=== PATIENT | female | born 1940 | race Caucasian/White ===

== ENCOUNTER 2016-11-23 08:42 | Observation (INO) ==
[2016-11-23] MEDS ORDERED: 0.9 % Sodium Chloride 1,000 ML IVC ONE (09:08)
--- NOTE | 2016-11-23 09:08 | Emergency Department Note ---
Disposition Clinical Impression: Chest pain of uncertain etiology Abdominal pain Qualifiers: Abdominal location: right upper quadrant Qualified Code(s): R10.11 - Right upper quadrant pain Disposition: Admitted As Inpatient Condition: Fair Referrals: NO,PCP [Non-Partnered Physician] - Forms: Work/School Release, ED Satisfaction Letter Time of Disposition: 10:53 Abdominal Pain HPI - General Chief Complaint: ED Abdominal Pain Stated Complaint: abd pain and knot under right breast Time Seen by Provider: 11/23/16 08:55 Source: patient Mode of arrival: ambulatory Limitations: no limitations Nursing Notes Reviewed: Yes Vital Signs Reviewed: Yes - History of Present Illness HPI Narrative: patient reports she is having abdominal pain, and this morning noticed a hard "knot" in the RUQ, under the breast. She did see her PCP earlier this week for abdominal pain, was given GERD medication, but this has not helped. She reports no nausea at this time. No vomiting, no fever. Patient has no history of HTN, or DM, or cardiac disease. Patient denies chest pain at this time. She does have tenderness under the right breast/rib region. She describes the pain as sharp at times. Dr. Garzon also examined patient. Pt Subjective Complaint: abdominal pain Onset (ago): unknown Consistency: intermittent, Worsening Location: RUQ Pain Severity: moderate Pain Scale: 5 Quality: stabbing, sharp Radiation: none Migration to: no migration Improves with: nothing Worsens with: nothing Associated symptoms: Reports: nausea. Denies: vomiting, diarrhea, fever, chills , constipation, dysuria, hematemesis, hematochezia, melena, hematuria, anorexia Treatments prior to arrival: none - Related Data Home Medications Medication Instructions Recorded Confirmed HYDROcodone/Acet 5/325 mg [[place] 1 tab PO Q6H PRN 09/07/16 11/23/16 5-325 mg] Lisinopril/Hydrochlorothiazide 1 tab PO DAILY 09/07/16 11/23/16 [Zestoretic 20-12.5 mg Tablet] Simvastatin [Zocor] 20 mg PO DAILY 09/07/16 11/23/16 Hydroxychloroquine [Plaquenuil] 200 mg PO DAILY 11/23/16 11/23/16 Omeprazole [PriLOSEC] 20 mg PO DAILY 11/23/16 11/23/16 Allergies Allergy/AdvReac Type Severity Reaction Status Date / Time No Known Allergies Allergy Verified 11/23/16 08:48 All systems ED: reviewed and negative except as stated. Constitutional: Denies: fever, chills, weakness, weight change Cardiovascular: Denies: chest pain, palpitations, dyspnea on exertion, edema, syncope Respiratory: Denies: cough, dyspnea, wheezes, hemoptysis, stridor Gastrointestinal: Reports: abdominal pain, nausea. Denies: vomiting, diarrhea, constipation, hematemesis, melena, hematochezia Genitourinary: Denies: dysuria, frequency, hematuria, discharge Musculoskeletal: Denies: back pain, neck pain, arthralgia, myalgia Integumentary: Denies: rash, abrasion, lesions Neurological: Denies: headache, weakness, numbness, paresthesias, confusion, abnormal gait, vertigo Abdominal Pain PMH - Past Medical History Medical history: Reports: hyperlipidemia, hypertension Female Surgical History: Reports: appendectomy, cholecystectomy Psychiatric history: Reports: no psych history - Social History Smoking status: Never smoker Alcohol use: Reports: none Drug use: Reports: none Physical Exam - General Limitations: no limitations General appearance: alert, in no apparent distress - Head Head exam: atraumatic, normocephalic, normal inspection - Eye Eye exam: Present: normal appearance, PERRL, EOMI - ENT ENT exam: normal exam, normal oropharynx, mucous membranes moist - Neck Neck exam: Present: normal inspection, full ROM, trachea midline - Chest Chest inspection: Present: normal inspection, symmetric chest wall rise - Respiratory Respiratory exam: Present: normal lung sounds bilaterally - Cardiovascular Cardiovascular exam: Present: regular rate, normal rhythm, normal heart sounds - Abdominal Exam Abdominal exam: Present: soft, tenderness (RUQ, palpable nodule that is tender with palpation noted in the RUQ. ), normal bowel sounds. Absent: distention, guarding, rebound Abdominal tenderness: Present: RUQ, moderate - Extremities Exam Extremities exam: Present: normal inspection, full ROM. Absent: tenderness, pedal edema - Back Exam Back exam: Present: normal inspection, full ROM. Absent: tenderness - Neurological Exam Neurological exam: Present: alert, oriented X3 - Psychiatric Psychiatric exam: Present: normal affect, normal mood Course - Reevaluation(s) Reevaluation #1: Discussed with patient labs, radiology and heart score. Discussed admission to the hospital. Time: 10:30 - Consultations Consultation #1: Dr. Rosario accepted patient as admission Time: 10:51 Vital Signs Temperature 97.5 F L 11/23/16 08:43 Pulse Rate 101 11/23/16 08:43 Respiratory Rate 16 11/23/16 08:43 Blood Pressure 114/78 11/23/16 08:43 O2 Sat by Pulse Oximetry 97 11/23/16 08:43 Temperature 97.5 F L 11/23/16 08:43 Pulse Rate 83 11/23/16 09:44 Respiratory Rate 18 11/23/16 09:44 Blood Pressure 113/47 11/23/16 09:44 O2 Sat by Pulse Oximetry 99 11/23/16 09:44 Oxygen Delivery Oxygen Delivery Room Air Abdominal Pain - Lab Data Lab results reviewed: Yes I reviewed the patient's lab results. Result diagrams: 11/23/16 09:24 11/23/16 09:24 Lab Results 11/23/16 11/23/16 11/23/16 Range/Units 09:24 09:24 09:25 WBC 4.9 (4.3-11.1) K/mcL RBC 3.85 (3.82-4.97) M/mcL Hgb 10.9 L (11.5-15.4) g/dL Hct 33.8 L (35.3-44.9) % MCV 87.8 (83.0-100.0) fL MCH 28.3 (28.0-33.3) pg MCHC 32.2 (31.6-35.5) g/dL RDW 12.5 (11.5-14.5) % Plt Count 265 (140-400) K/mcL MPV 9.0 L (9.4-12.4) fL Immature Gran % 0.4 (0-4) % Seg Neutrophils % 73.1 % Lymphocytes % 16.2 % Monocytes % 7.2 % Eosinophils % 2.3 % Basophils % 0.8 % Neutrophils # 3.6 (1.6-8.9) K/mcL Lymphocytes # 0.8 (0.6-4.6) K/mcL Monocytes # 0.4 (0.0-1.3) K/mcL Eosinophils # 0.1 (0.0-0.6) K/mcL Basophils # 0.0 (0.0-0.2) K/mcL Sodium 142 (136-145) mEq/L Potassium 3.4 L (3.5-4.5) mEq/L Chloride 109 (98-109) mEq/L Carbon Dioxide 24 (19-29) mEq/L BUN 32 H (7-20) mg/dL Creatinine 1.32 H (0.57-1.11) mg/dL Est GFR ( Amer) 48 L (> 60) Est GFR (Non-Af Amer) 39 L (> 60) BUN/Creatinine Ratio 24 (6-26) Glucose 111 H (70-99) mg/dL Calculated Osmolality 302 H (280-300) Calcium 9.2 (8.6-10.8) mg/dL Total Bilirubin 0.9 (0.2-1.2) mg/dL Direct Bilirubin 0.4 (0.0-0.5) mg/dL Indirect Bilirubin 0.5 (0.0-1.2) mg/dL AST 6 (5-34) Units/L ALT 8 (0-55) Units/L Alkaline Phosphatase 85 (38-126) Units/L Troponin I 0.00 (0-0.03) ng/mL Serum Total Protein 6.7 (6.0-8.3) g/dL Albumin 3.5 (3.5-5.0) g/dL Globulin 3.2 (2.4-3.5) g/dL Albumin/Globulin Ratio 1.1 (1.1-2.2) Lipase 28 (8-78) Units/L Urine Color (Yellow) Urine Clarity (Clear) Urine pH (5.0-8.0) pH Units Ur Specific Anderson (1.010-1.025) Urine Protein (Neg-Trace) mg/dL Urine Glucose (UA) (Normal) mg/dL Urine Ketones (Negative) mg/dL Urine Blood (Negative) Urine Nitrite (Negative) Urine Bilirubin (Negative) Urine Urobilinogen (Normal) mg/dL Ur Leukocyte Esterase (Negative) Urine Microscopic RBC (0-3) per hpf Urine Microscopic WBC (0-3) per hpf Ur Squamous Epith Cells (None-Few) per lpf Urine Bacteria (None-Few) per hpf Hyaline Casts (None-Few) per lpf Ur Culture Indicated? (NO) 11/23/16 Range/Units 09:30 WBC (4.3-11.1) K/mcL RBC (3.82-4.97) M/mcL Hgb (11.5-15.4) g/dL Hct (35.3-44.9) % MCV (83.0-100.0) fL MCH (28.0-33.3) pg MCHC (31.6-35.5) g/dL RDW (11.5-14.5) % Plt Count (140-400) K/mcL MPV (9.4-12.4) fL Immature Gran % (0-4) % Seg Neutrophils % % Lymphocytes % % Monocytes % % Eosinophils % % Basophils % % Neutrophils # (1.6-8.9) K/mcL Lymphocytes # (0.6-4.6) K/mcL Monocytes # (0.0-1.3) K/mcL Eosinophils # (0.0-0.6) K/mcL Basophils # (0.0-0.2) K/mcL Sodium (136-145) mEq/L Potassium (3.5-4.5) mEq/L Chloride (98-109) mEq/L Carbon Dioxide (19-29) mEq/L BUN (7-20) mg/dL Creatinine (0.57-1.11) mg/dL Est GFR ( Amer) (> 60) Est GFR (Non-Af Amer) (> 60) BUN/Creatinine Ratio (6-26) Glucose (70-99) mg/dL Calculated Osmolality (280-300) Calcium (8.6-10.8) mg/dL Total Bilirubin (0.2-1.2) mg/dL Direct Bilirubin (0.0-0.5) mg/dL Indirect Bilirubin (0.0-1.2) mg/dL AST (5-34) Units/L ALT (0-55) Units/L Alkaline Phosphatase (38-126) Units/L Troponin I (0-0.03) ng/mL Serum Total Protein (6.0-8.3) g/dL Albumin (3.5-5.0) g/dL Globulin (2.4-3.5) g/dL Albumin/Globulin Ratio (1.1-2.2) Lipase (8-78) Units/L Urine Color Yellow (Yellow) Urine Clarity Clear (Clear) Urine pH 6.0 (5.0-8.0) pH Units Ur Specific Anderson 1.015 (1.010-1.025) Urine Protein Negative (Neg-Trace) mg/dL Urine Glucose (UA) Normal (Normal) mg/dL Urine Ketones Negative (Negative) mg/dL Urine Blood Negative (Negative) Urine Nitrite Negative (Negative) Urine Bilirubin Negative (Negative) Urine Urobilinogen Normal (Normal) mg/dL Ur Leukocyte Esterase Large H (Negative) Urine Microscopic RBC 0-3 (0-3) per hpf Urine Microscopic WBC 15-30 H (0-3) per hpf Ur Squamous Epith Cells Many H (None-Few) per lpf Urine Bacteria None Seen (None-Few) per hpf Hyaline Casts None Seen (None-Few) per lpf Ur Culture Indicated? YES A (NO) - Radiology Data Radiology results reviewed: Yes I reviewed the patient's radiology results. - EKG Data EKG shows normal: sinus rhythm When compared to previous EKG there are: previous EKG unavailable Attestation Statement - Attestation Attestation: I personally interviewed and examined this patient and my medical decision- making was reviewed with the ED PATTI, Ms. Diaz. I agree with the documented findings, disposition and treatment plan as described except to the extent set forth below. This is a 76-year-old white female with a history of hypertension and hyperlipidemia who presents the emergency parents today after being seen by her family doctor a few days ago for what she describes as a "lump on my chest" that is tender to palpation and causing her pain. When I asked her to show me where she is hurting patient points to her right anterior costal margin, and upon palpation of her lower 2 ribs patient has exquisite tenderness to palpation. Patient denies any history of falls or trauma or blunt injury to the lower chest or upper abdomen. Patient denies any fevers or chills, no URI symptoms cold or cough, no nausea vomiting, no diaphoresis, no abdominal pain or flank pain and no urinary symptoms. Patient's points to her substernal area as well and states that at times she does have pain in that area although none currently. Patient without tenderness to palpation throughout manger of the chest wall. He not feel a lump on palpation and actually palpating her anterior lower ribs near the right sternal border. When I push on this area as she said that exactly where she has been having the pain and not so she has been feeling as the prominence of her ribs and not area. Is in no acute distress resting comfortably with stable vital signs at this time. She has exquisite reproducible tenderness to palpation of those lower to anterior ribs on the right which are tender from the sternal border on the right and extending around to her lateral chest wall. There is no palpable crepitus or subcutaneous air. There is no overlying ecchymosis or abrasions noted. Patient's remaining exam is all within normal limits. She did add while I was examining her that at times over the last 2 days she has been having this substernal pain that feels a pressure sensation lasting 15- 20 minutes at rest and then resolves. Patient denies any symptoms in the substernal area currently. She denies any associated symptoms with this pain. On my examination I canceled the CT abdomen and pelvis as the patient has no abnormal abdominal symptoms or tenderness to palpation. I feel the pain that she is experiencing is coming from her bony rib cage. I added a right rib and chest x-ray as well as EKG and a troponin. Her EKG shows a normal sinus rhythm with some subtle ST depression less than 1 mm that anterolateral leads. We will obtain old films available. Patient's heart score equals 5, currently has resolution of her substernal pain that she has been experiencing at rest at home. Chest x-ray is negative for any rib injury and remainder of labs including troponin are negative. Patient has no old EKG for comparison today and her EKG here does show some subtle ST depression. We will bring the patient in for evaluation of chest pain, she has received aspirin and is pain-free currently. Chest Pain - Lab Data Result diagrams: 11/23/16 09:24 11/23/16 09:24 Lab Results 11/23/16 11/23/16 11/23/16 Range/Units 09:24 09:24 09:25 WBC 4.9 (4.3-11.1) K/mcL RBC 3.85 (3.82-4.97) M/mcL Hgb 10.9 L (11.5-15.4) g/dL Hct 33.8 L (35.3-44.9) % MCV 87.8 (83.0-100.0) fL MCH 28.3 (28.0-33.3) pg MCHC 32.2 (31.6-35.5) g/dL RDW 12.5 (11.5-14.5) % Plt Count 265 (140-400) K/mcL MPV 9.0 L (9.4-12.4) fL Immature Gran % 0.4 (0-4) % Seg Neutrophils % 73.1 % Lymphocytes % 16.2 % Monocytes % 7.2 % Eosinophils % 2.3 % Basophils % 0.8 % Neutrophils # 3.6 (1.6-8.9) K/mcL Lymphocytes # 0.8 (0.6-4.6) K/mcL Monocytes # 0.4 (0.0-1.3) K/mcL Eosinophils # 0.1 (0.0-0.6) K/mcL Basophils # 0.0 (0.0-0.2) K/mcL Sodium 142 (136-145) mEq/L Potassium 3.4 L (3.5-4.5) mEq/L Chloride 109 (98-109) mEq/L Carbon Dioxide 24 (19-29) mEq/L BUN 32 H (7-20) mg/dL Creatinine 1.32 H (0.57-1.11) mg/dL Est GFR ( Amer) 48 L (> 60) Est GFR (Non-Af Amer) 39 L (> 60) BUN/Creatinine Ratio 24 (6-26) Glucose 111 H (70-99) mg/dL Calculated Osmolality 302 H (280-300) Calcium 9.2 (8.6-10.8) mg/dL Total Bilirubin 0.9 (0.2-1.2) mg/dL Direct Bilirubin 0.4 (0.0-0.5) mg/dL Indirect Bilirubin 0.5 (0.0-1.2) mg/dL AST 6 (5-34) Units/L ALT 8 (0-55) Units/L Alkaline Phosphatase 85 (38-126) Units/L Troponin I 0.00 (0-0.03) ng/mL Serum Total Protein 6.7 (6.0-8.3) g/dL Albumin 3.5 (3.5-5.0) g/dL Globulin 3.2 (2.4-3.5) g/dL Albumin/Globulin Ratio 1.1 (1.1-2.2) Lipase 28 (8-78) Units/L Urine Color (Yellow) Urine Clarity (Clear) Urine pH (5.0-8.0) pH Units Ur Specific Anderson (1.010-1.025) Urine Protein (Neg-Trace) mg/dL Urine Glucose (UA) (Normal) mg/dL Urine Ketones (Negative) mg/dL Urine Blood (Negative) Urine Nitrite (Negative) Urine Bilirubin (Negative) Urine Urobilinogen (Normal) mg/dL Ur Leukocyte Esterase (Negative) Urine Microscopic RBC (0-3) per hpf Urine Microscopic WBC (0-3) per hpf Ur Squamous Epith Cells (None-Few) per lpf Urine Bacteria (None-Few) per hpf Hyaline Casts (None-Few) per lpf Ur Culture Indicated? (NO) 11/23/16 Range/Units 09:30 WBC (4.3-11.1) K/mcL RBC (3.82-4.97) M/mcL Hgb (11.5-15.4) g/dL Hct (35.3-44.9) % MCV (83.0-100.0) fL MCH (28.0-33.3) pg MCHC (31.6-35.5) g/dL RDW (11.5-14.5) % Plt Count (140-400) K/mcL MPV (9.4-12.4) fL Immature Gran % (0-4) % Seg Neutrophils % % Lymphocytes % % Monocytes % % Eosinophils % % Basophils % % Neutrophils # (1.6-8.9) K/mcL Lymphocytes # (0.6-4.6) K/mcL Monocytes # (0.0-1.3) K/mcL Eosinophils # (0.0-0.6) K/mcL Basophils # (0.0-0.2) K/mcL Sodium (136-145) mEq/L Potassium (3.5-4.5) mEq/L Chloride (98-109) mEq/L Carbon Dioxide (19-29) mEq/L BUN (7-20) mg/dL Creatinine (0.57-1.11) mg/dL Est GFR ( Amer) (> 60) Est GFR (Non-Af Amer) (> 60) BUN/Creatinine Ratio (6-26) Glucose (70-99) mg/dL Calculated Osmolality (280-300) Calcium (8.6-10.8) mg/dL Total Bilirubin (0.2-1.2) mg/dL Direct Bilirubin (0.0-0.5) mg/dL Indirect Bilirubin (0.0-1.2) mg/dL AST (5-34) Units/L ALT (0-55) Units/L Alkaline Phosphatase (38-126) Units/L Troponin I (0-0.03) ng/mL Serum Total Protein (6.0-8.3) g/dL Albumin (3.5-5.0) g/dL Globulin (2.4-3.5) g/dL Albumin/Globulin Ratio (1.1-2.2) Lipase (8-78) Units/L Urine Color Yellow (Yellow) Urine Clarity Clear (Clear) Urine pH 6.0 (5.0-8.0) pH Units Ur Specific Anderson 1.015 (1.010-1.025) Urine Protein Negative (Neg-Trace) mg/dL Urine Glucose (UA) Normal (Normal) mg/dL Urine Ketones Negative (Negative) mg/dL Urine Blood Negative (Negative) Urine Nitrite Negative (Negative) Urine Bilirubin Negative (Negative) Urine Urobilinogen Normal (Normal) mg/dL Ur Leukocyte Esterase Large H (Negative) Urine Microscopic RBC 0-3 (0-3) per hpf Urine Microscopic WBC 15-30 H (0-3) per hpf Ur Squamous Epith Cells Many H (None-Few) per lpf Urine Bacteria None Seen (None-Few) per hpf Hyaline Casts None Seen (None-Few) per lpf Ur Culture Indicated? YES A (NO) Heart Score - Score History: Moderately Suspicious EKG: Non Specific repolarisation Disturbance Age: Greater than 65 Risk Factors: 1-2 risk factors Troponin: Less than normal limit HEART Score Total: 5
[2016-11-23 09:35] LABS: Bilirubin,Urine Negative (Negative); Blood,Urine Negative (Negative); Clarity,Urine Clear (Clear); Color,Urine Yellow (Yellow); Glucose,Urine (UA) Normal (Normal); Ketones,Urine Negative (Negative); Leukocyte Esterase,Urine Large (Negative); Nitrite,Urine Negative (Negative); Protein,Urine Negative (Neg-Trace); Specific Gravity,Urine 1.015 (1.010-1.025); Urobilinogen,Urine Normal (Normal)
[2016-11-23 09:37] LABS: Bacteria,Urine None Seen per hpf (None-Few); Hyaline Casts,Urine None Seen per lpf (None-Few); RBC,Urine 0-3 per hpf (0-3); Squamous Epithelial Cell,Urine Many per lpf (None-Few); WBC,Urine 15-30 per hpf (0-3)
[2016-11-23 09:39] LABS: Hematocrit 33.8 % (35.3-44.9); Hemoglobin 10.9 g/dL (11.5-15.4); Immature Granulocytes % 0.4 % (0-4); Lymphocytes % 16.2 %; Mean Corpuscular HGB Conc 32.2 g/dL (31.6-35.5); Mean Corpuscular Hemoglobin 28.3 pg (28.0-33.3); Mean Corpuscular Volume 87.8 fL (83.0-100.0); Monocytes % 7.2 %; Platelet Count 265 K/mcL (140-400); Red Blood Count 3.85 M/mcL (3.82-4.97); Red Cell Distribution Width 12.5 % (11.5-14.5); Segmented Neutrophils % 73.1 %
[2016-11-23 09:40] LABS: Basophils % 0.8 %; Eosinophils # 0.1 K/mcL (0.0-0.6); Eosinophils % 2.3 %; Lymphocytes # 0.8 K/mcL (0.6-4.6); Monocytes # 0.4 K/mcL (0.0-1.3); Neutrophils # 3.6 K/mcL (1.6-8.9)
[2016-11-23 09:55] LABS: Albumin 3.5 g/dL (3.5-5.0); Albumin/Globulin Ratio 1.1 (1.1-2.2); Bilirubin,Direct 0.4 mg/dL (0.0-0.5); Bilirubin,Indirect 0.5 mg/dL (0.0-1.2); Bilirubin,Total 0.9 mg/dL (0.2-1.2); Calcium 9.2 mg/dL (8.6-10.8); Globulin 3.2 g/dL (2.4-3.5); Potassium 3.4 mEq/L (3.5-4.5); Total Protein 6.7 g/dL (6.0-8.3)
[2016-11-23] MEDS ORDERED: Aspirin 81 MG TAB.CHEW PO STA (09:59)
[2016-11-23] MEDS ORDERED: Naloxone 0.4 MG/ML INJ IVP PRN (11:01)
--- NOTE | 2016-11-23 11:45 | Internal Med History&Physical ---
<Mylene Clinton - Last Filed: 11/23/16 12:52> Date of Encounter: 11/23/16 Time of Encounter: 11:41 Assessment and Plan (1) Chest pain of uncertain etiology Current visit: Yes Status: Acute presented with right breast pain that radiates to mid chest at times. Does not follow with Cardiology and no previous ischemic work-up. Initial troponin negative, EKG with less than [address] depression in anterior-lateral lead. CXR with degenerative changes, otherwise non-acute. Suspect costrochondritis. Doubt true ACS but she does have cardiac risk factors (obesity, HTN and HLD). Was given ASA in the ED. Cont to trend troponin, ASA, home statin. Repeat EKG in the morning. Consider Nucelar stress test if EKG changes, troponin uptrending or sx's worsen. Consult Cardiology if needed (2) UTI (urinary tract infection) Current visit: Yes Status: Acute UA with large leuk esterase and pyuria. Add cipro for total 3 day course. Qualifiers: Qualified Code(s): N39.0 - Urinary tract infection, site not specified (3) CKD (chronic kidney disease) Current visit: Yes Status: Acute per hx. Cr 1.3 which appears at baseline. Received IV fluid bolus in the ED. Monitor with use of LORI Qualifiers: Qualified Code(s): N18.9 - Chronic kidney disease, unspecified (4) Hypertension Current visit: Yes Status: Acute per hx. BP controlled. Cont home BP medication. Monitor BP and titrate PRN Qualifiers: Qualified Code(s): I10 - Essential (primary) hypertension (5) Hyperlipidemia Current visit: Yes Status: Acute per hx. Control unknown. Cont home statin. Fasting lipid panel in the morning Qualifiers: Qualified Code(s): E78.5 - Hyperlipidemia, unspecified (6) Degenerative disc disease, thoracic Current visit: Yes Status: Acute incidental finding on Right rib x-ray. Right x-ray with questionably decreased height to thoracic vertebrae. Asymptomatic, denies back pain. No recent falls. Can follow-up outpatient with PCP (7) DVT prophylaxis Current visit: Yes Status: Acute heparin Internal Medicine - H&P: HPI Chief complaint: RUQ/chest pain Admitted From: Home Plans for Post Hospital Care: Home History of present illness: Ms. Ann is a 76 year old female with PMH HTN and HLD who presented to [facility] on 11/23/2016 with complaints of right UQ and chest pain. She was placed in observation status for ACS rule out. Information obtained from chart review and patient report. Seen and examined at bedside. She tells me that she has had pain under right breast for the last week and noticed a bump in the area last night. Says pain is thumping, radiates to mid chest and upper ABD, rates 5/10. Pain is constant and nothing makes better or worse. She also reports excessive belching. No association with eating or drinking. On my exam she denies CP, no SOB, no ABD pain. Past Med Surg Social Fam HX - Past Medical History Medical history: hyperlipidemia, hypertension Psychiatric history: no psych history - Past Surgical History Surgical History: appendectomy, breast surgery, cholecystectomy - Social History Smoking Status: Never smoker Smokeless Tobacco Status: No Alcohol use: none Drug use: none - Additional Family History Additional family history: reviewed and non-contributory per patient Internal Medicine - H&P: Meds HYDROcodone/Acet 5/325 mg [[place] 5-325 mg] 1 tab PO Q6H PRN 09/07/16 [History] Lisinopril/Hydrochlorothiazide [Zestoretic 20-12.5 mg Tablet] 1 tab PO DAILY 05/14 [History] Simvastatin [Zocor] 20 mg PO DAILY 09/07/16 [History] Hydroxychloroquine [Plaquenuil] 200 mg PO DAILY 11/23/16 [History] Omeprazole [PriLOSEC] 20 mg PO DAILY 11/23/16 [History] Allergies No Known Allergies Allergy (Verified 11/23/16 08:48) All Systems PM: A 10-system review of systems was performed and is negative for pertinent findings except as documented above in the HPI. - Constitutional Constitutional: no chills, no fever(s), no night sweats - EENT Eyes: no change in vision, no discharge, no pain, no photophobia Ears: no ear discharge, no ear pain, no tinnitus Nose, mouth and throat: no dysphagia, no nasal discharge, no neck pain, no sore throat - Breasts Breasts: other Additional comments: c/o lump and pain under right breast fold - Cardiovascular Cardiovascular ROS IM: no chest pain, no diaphoresis, no dyspnea, no lightheadedness, no palpitations, no syncope - Respiratory Respiratory: no cough, no dyspnea, no wheezing, no excessive phlegm production - Gastrointestinal Gastrointestinal: no abdominal pain, no diarrhea, no hematemesis, no hematochezia, no melena, no nausea, no vomiting - Genitourinary Genitourinary: no change in urinary stream, no dysuria, no flank pain, no hematuria - Musculoskeletal Musculoskeletal ROS IM: no numbness, no tingling - Integumentary Integumentary IM: rash, no unusual bruising Additional comments: rash to lower right back - Neurological Neurological ROS: no confusion, no convulsions, no focal weakness, no numbness, no tingling, no tremor(s) - Hematologic/Lymphatic Hematologic/Lymphatic: no easy bruising - Constitutional Vitals: Temp Pulse Resp BP Pulse Ox 97.5 F L 70 18 129/91 99 11/23/16 08:43 11/23/16 11:00 11/23/16 11:15 11/23/16 11:15 11/23/16 11:00 General appearance: Present: A&O X 3, morbidly obese, no acute distress - Head Head exam: Present: atraumatic, normocephalic - Eye Eye exam: Present: PERRL, conjuntiva pink, sclera anicteric Pupils: Present: PERRL - Neck Neck exam general surgery: Present: supple, trachea midline. Absent: lymphadenopathy - Respiratory Respiratory exam: Present: CTAB. Absent: accessory muscle use, rales, rhonchi, wheezes - Cardiovascular Cardiovascular exam: Present: RRR, +S1, +S2. Absent: diastolic murmur, gallop, rubs, systolic murmur - GI/Abdominal GI/Abdominal exam: Present: normal bowel sounds, soft, no peritoneal signs. Absent: distended, tenderness - Extremities Exam Extremities exam: Present: warm, radial pulses palpable and symetrical. Absent : calf tenderness, cyanotic, pedal edema - Neurological Exam Neurological exam: Present: CN II-XII intact, oriented X3, no focal deficits. Absent: pronater drift, facial droop, speech deficit - Skin Skin exam: Present: dry, intact, rash (+ right lower back resolving rash ) - Other Additional findings: small raised area to right breast fold Internal Med - H&P Results - Labs CBC & Chem 7: 11/23/16 09:24 11/23/16 09:24 <Marlenechelsey - Last Filed: 11/23/16 13:53> Date of Encounter: 11/23/16 Time of Encounter: 12:00 Internal Medicine - H&P: HPI History of present illness: Ms. Ann is a 76 year old female Past Med Surg Social Fam HX - Family History Mother History Unknown: Yes Father Cause of : cancer Hx Family Cancer: Yes All Systems PM: A 10-system review of systems was performed and is negative for pertinent findings except as documented above in the HPI. - Constitutional Vitals: Temp Pulse Resp BP Pulse Ox 97.6 F 65 16 114/64 100 11/23/16 11:51 11/23/16 11:51 11/23/16 11:51 11/23/16 11:51 11/23/16 11:56 Internal Med - H&P Results - Labs CBC & Chem 7: 11/23/16 09:24 11/23/16 09:24 - Attending Attestation I examined this patient and my medical decision-making was reviewed with the nurse practitioner. I agree with the documented history of present illness, review of systems, past medical, surgical social and family histories and examination findings, disposition and treatment plan as described above except to any changes set forth below. 76-year-old female patient with history of essential hypertension, hyperlipidemia presented with right-sided chest pain. Began last Saturday. She was evaluated by her regular doctor and was told that it could be related to acid reflux and was given medication for that. She denies any nausea or vomiting. The pain continued to persist and so she came to the ER today. This morning she did feel a lump on the right side of her chest wall at the site of her pain. No shortness of breath. No palpitations. No prior history of coronary artery disease. No similar episodes of chest pain in the past. Denies any trauma or injury On examination, patient is awake alert and oriented. Cardiac and respiratory examination is within normal limits. On examination of the chest wall, the patient does have tenderness over her right-sided lower ribs with mild palpable swelling at the site of her pain. Labs show normal troponins. Patient has minimal less than 1 mm depression in the ST segment on her anterior leads. No prior EKG to compare. Chest pain: Likely musculoskeletal/costochondritis related chest pain. However the patient does have risk factors including age, sex, hypertension and hyperlipidemia. We will trend troponins. Monitor with telemetry. Repeat EKG in the morning. May consider stress test in the morning if any further abnormalities found. Otherwise will treat for costochondritis with analgesics. Mild acute urinary tract infection. We will treat with ciprofloxacin. Follow urine culture results. Chronic kidney disease stage III: Patient's creatinine is at baseline. This document has been at least partially created by [employer] recognition technology by Dr. Rosario. Errors in grammar, wording or other phrases may exist. If errors are found after the documentation is signed, they will be addressed individually in the addendum section of this document when appropriate.
[2016-11-23] MEDS ORDERED: *HR* HYDROcodone/Acet 5/325 mg TABLET PO PRN (11:57)
[2016-11-23 12:09] LABS: Hemoglobin A1C 5.3 %
[2016-11-23] MEDS: *HR* Heparin 5,000 UNIT/ML VIAL SQ SCH ×2 (14:16→20:52)
[2016-11-24 04:26] LABS: Basophils % 0.4 %; Eosinophils # 0.2 K/mcL (0.0-0.6); Eosinophils % 4.3 %; Hematocrit 29.2 % (35.3-44.9); Hemoglobin 9.6 g/dL (11.5-15.4); Immature Granulocytes % 0.2 % (0-4); Lymphocytes % 21.3 %; Mean Corpuscular HGB Conc 32.9 g/dL (31.6-35.5); Mean Corpuscular Hemoglobin 29.1 pg (28.0-33.3); Mean Corpuscular Volume 88.5 fL (83.0-100.0); Mean Platelet Volume 9.5 fL (9.4-12.4); Monocytes # 0.4 K/mcL (0.0-1.3); Monocytes % 7.7 %; Neutrophils # 3.2 K/mcL (1.6-8.9); Platelet Count 242 K/mcL (140-400); Red Cell Distribution Width 12.6 % (11.5-14.5); Segmented Neutrophils % 66.1 %
[2016-11-24 04:44] LABS: Calcium 8.7 mg/dL (8.6-10.8); Potassium 3.7 mEq/L (3.5-4.5)
[2016-11-24] MEDS: *HR* Heparin 5,000 UNIT/ML VIAL SQ SCH (06:29)
--- NOTE | 2016-11-24 08:25 | ECHO - Doppler Report ---
Echocardiogram Name: Delicia Ann Date of Study: 11/23/2016 Date: 1940 Ht: 61.0 in Medical Record#: [id number] Age: 76 Wt: 208.0 lb Gender: Female BSA: 1.92 Order #: [id number] Location: [facility] Room #: 3B49 Reading Physician: Stoney Dumont MD, [facility] Professor Of English: Mary Babcock RDCS Ordering Physician: Sridhar Rosario MD Primary Physician: Dhruv Salazar DO Indications: Chest pain Impressions: Normal LV systolic function, LVEF 55%. Normal right ventricular size and function. Mild-moderate aortic regurgitation. Mild mitral regurgitation. No evidence of pulmonary hypertension. Left Ventricular Wall Motion: Rest Echo Findings All wall segments showed normal motion. Findings: Study Quality * Technically adequate exam. ECG Findings * Normal sinus rhythm. Left Ventricle * Normal LV systolic function, LVEF 55%. * Normal LV chamber size and wall thickness. * Indeterminate diastolic function. Right Ventricle * Normal right ventricular size and function. Left Atrium * Normal left atrial size. Right Atrium * Normal right atrial size. Aorta * Normally sized aortic root. Pericardium * There is no pericardial effusion present. IVC * The IVC is borderline dilated. Aortic Valve * Trileaflet aortic valve. * Mildly sclerotic aortic valve leaflets. * No aortic stenosis. * Mild-moderate aortic regurgitation. Mitral Valve * Mildly thickened mitral valve leaflets. * No mitral stenosis. * Mild mitral regurgitation. Tricuspid Valve * Normal tricuspid valve structure. * No tricuspid stenosis. * Trace tricuspid regurgitation. * No evidence of pulmonary hypertension. Pulmonic Valve * Pulmonic valve is not well visualized. * No pulmonic stenosis. * Trace pulmonic regurgitation. History Hypertension Hypercholesteremia Measurements: BP: 103/ 60 2D Normal Values RVIDd: 3.50 cm IVSd: .90 cm 0.6 - 1.0 cm LVIDd: 4.40 cm 3.7 - 5.6 cm LVPWd: 1.00 cm 0.6 - 1.1 cm LVIDs: 2.90 cm 1.5 - 3.6 cm AO: 2.90 cm < 4.0 cm LVOT Diam: 2.10 cm LA volume: 59 Mitral Valve Peak E:.90 m/sec Peak A:.97 m/sec E/A Ratio:0.9 Tricuspid Valve TV Regurg Peak Grad: 19.00mmHg TV Regurg Peak David: 2.17m/sec Updated by Stoney Dumont MD, [facility] on 11/24/2016 8:19:18 AM electronically signed on 11/24/2016 8:19:56 AM with status of Final Wall Motion Nicole: 1=Normal, 2=Hypokinesis, 3=Akinesis, 4=Dyskinesis, 5=Aneurysmal, 6=Hyperkinetic, X=Not Visualized (Blank)=Missing
[2016-11-24] MEDS ORDERED: Lisinopril-HCTZ 20-12.5mg TABLET PO SCH (09:00)
[2016-11-24] MEDS ORDERED: Aspirin 81 MG TAB.CHEW PO SCH (09:00)
[2016-11-24] MEDS ORDERED: Sucralfate 1 GM TABLET PO SCH (09:04)
[2016-11-24] MEDS ORDERED: Acetaminophen 325 MG TABLET PO PRN (09:06)
[2016-11-24 11:24] VITALS: BP 103/62
--- NOTE | 2016-11-24 12:57 | Discharge Summary ---
Date of Encounter: 11/24/16 Time of Encounter: 09:15 - Discharge Diagnosis (1) Chest pain of uncertain etiology Priority: Primary Status: Acute Comments: Right low anterior rib pain for 2-3 days. She reports a knot in that area, however I did not palpate one. The area is tender to palpation there is no bruising or abrasions.. Patient denies any injuries or change in routine. She says she commonly lifts heavy laundry baskets and moves the couch to vacuum. She also reports upper abdominal pain, bilateral, with some burning in the epigastric area. There is no real relation to food. She describes it as a thumping pain and there is no radiation. It is not painful but her worse by any factors. She denies any real relation to food, although she does say that happens after she eats most of the time. She denies shortness of breath, nausea or vomiting, diaphoresis. She says this pain happens daily sometimes 2- 3 times daily lasting about 5 minutes. She does take omeprazole for reflux symptoms. Right rib x-ray was negative, as well as echocardiogram. EF 55% with normal systolic function. Normal right ventricular size and function with mild to moderate AR, mild MR and no evidence of pulmonary hypertension. Troponins were negative 3. Patient's pain was relieved with her normal omeprazole, Carafate, and a Tylenol. Pain went from 01/05-08/07. Carafate 1000 mg by mouth 3 times a day before meals Continue omeprazole Tylenol 650 mg every 6 hours as needed for rib pain (2) CKD (chronic kidney disease) stage 3, GFR 30-59 ml/min Priority: Secondary Status: Acute Comments: Chronic. (3) GERD (gastroesophageal reflux disease) Priority: Secondary Status: Chronic Comments: Continue omeprazole at home. Add Carafate 1000 mg by mouth 3 times a day before meals Qualifiers: Esophagitis presence: esophagitis presence not specified Qualified Code(s) : K21.9 - Gastro-esophageal reflux disease without esophagitis (4) Abdominal pain Priority: Secondary Status: Acute Comments: Onset 2-3 days ago. Plan as above Qualifiers: Abdominal location: upper abdomen, unspecified Qualified Code(s): R10.10 - Upper abdominal pain, unspecified (5) Hypertension Priority: Secondary Status: Chronic Comments: Chronic. Continue home medications. Qualifiers: Hypertension type: essential hypertension Qualified Code(s): I10 - Essential (primary) hypertension (6) Hyperlipidemia Priority: Secondary Status: Chronic Comments: Chronic. Continue home medications. Qualifiers: Hyperlipidemia type: pure hypercholesterolemia Qualified Code(s): E78.00 - Pure hypercholesterolemia, unspecified; E78.0 - Pure hypercholesterolemia (7) UTI (urinary tract infection) Priority: Secondary Status: Acute Comments: Patient is being treated for urinary tract infection that was an incidental finding in the emergency department. Urine had a large amount leukocyte esterase and many white cells. She is being treated with Cipro. She denies urinary symptoms, however, some of the upper abdominal pain very well could be UTI symptoms. Continue Cipro at home Increase fluids Qualifiers: Urinary tract infection type: acute cystitis Hematuria presence: without hematuria Qualified Code(s): N30.00 - Acute cystitis without hematuria (8) DVT prophylaxis Priority: Secondary Status: Acute (9) Degenerative disc disease, thoracic Priority: Secondary Status: Chronic Comments: There are degenerative changes of the spine noted on her right rib series that was ordered in the emergency department. Some of the lower thoracic vertebral bodies have questionably decreased height. She can follow-up with her family doctor for evaluation. - Discharge Medications Prescriptions: Acetaminophen [Tylenol] 650 mg PO Q6HR PRN #30 tablet PRN Reason: Mild Pain Ciprofloxacin [Cipro] 250 mg PO BID #13 tablet Sucralfate [Carafate] 1 gm PO TIDWM #90 tablet Home Medications: HYDROcodone/Acet 5/325 mg [[place] 5-325 mg] 1 tab PO Q6H PRN 09/07/16 [History] Lisinopril/Hydrochlorothiazide [Zestoretic 20-12.5 mg Tablet] 1 tab PO DAILY 05/14 [History] Simvastatin [Zocor] 20 mg PO DAILY 09/07/16 [History] Hydroxychloroquine [Plaquenuil] 200 mg PO DAILY 11/23/16 [History] Omeprazole [PriLOSEC] 20 mg PO DAILY 11/23/16 [History] Acetaminophen [Tylenol] 650 mg PO Q6HR PRN #30 tablet 11/24/16 [Rx] Ciprofloxacin [Cipro] 250 mg PO BID #13 tablet 11/24/16 [Rx] Sucralfate [Carafate] 1 gm PO TIDWM #90 tablet 11/24/16 [Rx] Allergies/Adverse Reactions: Allergies No Known Allergies Allergy (Verified 11/23/16 08:48) Procedures/tests Complete & Pending: Procedures Performed prior 72 hours Category Date Time Status ECG 12 lead ECG [ECG] AM 0600 Y 11/24/16 06:00 Ordered ECG 12 lead ECG [ECG] Stat Y 11/23/16 13:56 Ordered EV echocardiogram Routine Y 11/23/16 17:55 Completed Date of admission: 11/23/16 11:07 Primary care physician: Vamshi Salazar, Discharging clinician: Inocencia Camp Anticipated date of discharge: 11/24/16 - Patient Status Disposition: Home, Self-Care Condition: Good Functional capacity at discharge: independent ambulation Overall status at discharge: patient is progressing back to baseline - Discharge Instructions Follow Up With: Vamshi Salazar DO [Primary Care Provider] - 12/06/16 9:30 am Additional Instructions: Please follow up with your family doctor in the next week Take your medications as directed. Ciprofloxacin is your antibiotic. It is important that you take is on schedule and take them until they are gone. Drink pleny of water Resume your other home medications Tylenol for your rib pain. Continue taking the Omeprazole daily and add the Carafate/Sucralfate before meals REturn to the ER for any problems or concerns or for any new or worsening symptoms - Diet and Activity Activity: resume usual activities as tolerated Diet: diabetic diet, low fat, low cholesterol Hospital course: Ms. Ann is a 76 year old female with history of hypertension and hyperlipidemia chronic kidney disease stage III who presented to the emergency department on November 23, after being seen by her family doctor 3 days ago, for which she describes as a lump in her chest. She says is tender to palpation is causing her pain. Patient also reported diffuse upper abdominal pain. She was admitted also for urinary tract infection, chest pain and to rule out CORONARY artery disease or IA. Patient had a right rib series x-ray. There is no acute focal right abnormality. She did have some degenerative changes of the spine, some of the lower thoracic vertebral bodies have questionably decreased height. Patient had an echocardiogram this morning. His LVEF of 55% with normal systolic function, mild to moderate AR and mild MR, no evidence of pulmonary hypertension. Patient's right anterior ribs are tender to palpation. She denies any injury or change in routine. She says that she does lift heavy laundry basket at home and moves the couch frequently to vacuum. She said the rib pain began 2-3 days ago. She does not have any shortness of breath, her lungs are clear anteriorly and posteriorly. Patient also reports bilateral upper abdominal pain that she describes as a thumping pain. Sometimes she has burning. She denies nausea or vomiting, no diarrhea no radiation of diaphoresis she has never had arm neck or jaw pain on either side. She says it happens daily, sometimes 2-3 times a day lasting about 5 minutes. There is no real relation to food. She does take omeprazole daily. She is tender to palpation in epigastric area. As for the rib pain and abdominal pain she states that nothing makes them better or worse. Initially on evaluation her pain was 6 out of 10. I gave her a Carafate, then her breakfast tray, then Tylenol 650 mg by mouth. Her pain is now a 1 out of 10. Patient's vital signs have remained stable. She has no fever or leukocytosis. She is also being treated for urinary tract infection. She denies any urinary symptoms. Some of the upper abdominal pain could very well be related to the urinary tract infection. She has been treated with Cipro by mouth and will get a prescription for home. Patient is stable and appropriate for discharge - Time Spent with Patient Total time spent providing and/or coordinating discharge services: - Constitutional Vitals: Temp Pulse Resp BP Pulse Ox 97.9 F 62 14 103/62 98 11/24/16 11:22 11/24/16 11:22 11/24/16 11:22 11/24/16 11:22 11/24/16 11:22 General appearance: Present: cooperative, A&O X 3, morbidly obese, pleasant, no acute distress, answers questions appropriately - Head Head exam: Present: normal inspection - Eye Eye exam: Present: normal appearance, conjuntiva pink - ENT ENT exam: Present: mucous membranes moist, normal exam, normal external ear exam - Neck Neck exam general surgery: Present: normal inspection. Absent: lymphadenopathy , tenderness - Respiratory Respiratory exam: Present: chest wall tenderness, CTAB. Absent: decreased breath sounds, rales, respiratory distress, rhonchi, wheezes - Cardiovascular Cardiovascular exam: Present: RRR, +S1, +S2. Absent: diastolic murmur, systolic murmur - GI/Abdominal GI/Abdominal exam: Present: firm, normal bowel sounds, soft. Absent: distended , hepatomegaly, tenderness - Extremities Exam Extremities exam: Present: normal capillary refill, normal inspection, warm, radial pulses palpable and symetrical. Absent: pedal edema, tenderness - Neurological Exam Neurological exam: Present: alert, oriented X3, no focal deficits, strengths equal and symetr throughout. Absent: facial droop, speech deficit
--- NOTE | 2016-11-25 17:35 | Electrocardiograph Report ---
[place] [id number] Test Date: 2016-11-23 Pat Name: Delicia Ann Department: 105 Room: 3B Gender: F Gui Developer: EVELIO : 1940 Requested By: Dasia Oconnell Order Number: [id number] Reading MD: Susan Melgar Measurements Intervals [place] Rate: 86 P: 37 TN: 177 QRS: 3 QRSD: 96 T: 30 QT: 370 QTc: 413 Interpretive Statements SINUS RHYTHM MINIMAL ST DEPRESSION [0.025+ mV ST DEPRESSION] Electronically Signed On 11-25-2016 17:33:49 EDT by Susan Melgar
--- NOTE | 2016-11-25 17:39 | Electrocardiograph Report ---
[place] [id number] Test Date: 2016-11-23 Pat Name: Delicia Ann Department: 113 Room: 3B Gender: F Hanger Off: : 1940 Requested By: Mylene Clinton Order Number: [id number] Reading MD: Susan Melgar Measurements Intervals [place] Rate: 72 P: 12 [place]: 182 QRS: 7 QRSD: 90 T: 14 QT: 388 QTc: 412 Interpretive Statements SINUS RHYTHM Electronically Signed On 11-25-2016 17:38:10 EDT by Susan Melgar
--- NOTE | 2016-11-25 17:49 | Electrocardiograph Report ---
[place] [id number] Test Date: 2016-11-24 Pat Name: Delicia Ann Department: 113 Room: 3B Gender: F Lumber Trimmer: [id number] : 1940 Requested By: Mylene Clinton Order Number: [id number] Reading MD: Susan Melgar Measurements Intervals [place] Rate: 67 P: 35 FL: 169 QRS: 17 QRSD: 96 T: 15 QT: 400 QTc: 415 Interpretive Statements SINUS RHYTHM Electronically Signed On 11-25-2016 17:47:52 EDT by Susan Melgar
== END 2016-11-24 14:24 | disposition home or self-care (01) ==
LOC: 3BNU 08:42 → EMEROO 08:42 → 3BNU 11:15
PROVIDERS: ADMIT Internal Medicine; ATTEND Registered Nurse

== ENCOUNTER 2020-02-13 08:49 | Observation (INO) ==
[2020-02-13] MEDS ORDERED: Aspirin 81 MG TAB.CHEW PO ONE (08:51)
[2020-02-13] MEDS: Nitroglycerin 0.4 MG TAB.SUBL SL PRN ×2 (09:09→12:20)
[2020-02-13 09:19] LABS: INR 0.9; Prothrombin Time 10.7 Seconds (9.4-12.1)
[2020-02-13 09:20] LABS: Basophils % 0.7 %; Eosinophils # 0.2 K/mcL (0.0-0.6); Hematocrit 37.1 % (35.3-44.9); Hemoglobin 11.9 g/dL (11.5-15.4); Lymphocytes # 1.1 K/mcL (0.6-4.6); Lymphocytes % 20.2 %; Mean Corpuscular HGB Conc 32.1 g/dL (31.6-35.5); Mean Corpuscular Hemoglobin 30.2 pg (28.0-33.3); Mean Corpuscular Volume 94.2 fL (83.0-100.0); Mean Platelet Volume 8.9 fL (9.4-12.4); Monocytes # 0.4 K/mcL (0.0-1.3); Monocytes % 7.3 %; Neutrophils # 3.7 K/mcL (1.6-8.9); Platelet Count 266 K/mcL (140-400); Red Blood Count 3.94 M/mcL (3.82-4.97); Red Cell Distribution Width 12.8 % (11.5-14.5); Segmented Neutrophils % 68.8 %; White Blood Count 5.3 K/mcL (4.3-11.1)
[2020-02-13 09:36] LABS: BUN/Creatinine Ratio 24 (6-26); Blood Urea Nitrogen 32 mg/dL (8-23); Calcium 8.6 mg/dL (8.6-10.3); Carbon Dioxide 22 mEq/L (23-29); Chloride 108 mEq/L (98-107); Glucose 99 mg/dL (70-105); Osmolality,Calculated 295 (280-300); Potassium 4.2 mEq/L (3.5-5.1); Sodium 139 mEq/L (136-145); Troponin I < 0.03 ng/mL (< 0.04); eGFR For African Americans 46 (> 60); eGFR For Non-African Americans 38 (> 60)
[2020-02-13] MEDS ORDERED: *HR* Promethazine 25 MG/ML VIAL IVP PRN (10:09)
[2020-02-13] MEDS: Lisinopril-HCTZ 20-12.5mg TABLET PO SCH (15:55)
[2020-02-13] MEDS ORDERED: Acetaminophen 325 MG TABLET PO ONE (19:52)
[2020-02-13] MEDS: *HR* Heparin 5,000 UNIT/ML VIAL SQ SCH (21:20)
[2020-02-14 03:56] LABS: Hematocrit 32.1 % (35.3-44.9); Hemoglobin 10.4 g/dL (11.5-15.4); Mean Corpuscular HGB Conc 32.4 g/dL (31.6-35.5); Mean Corpuscular Hemoglobin 30.8 pg (28.0-33.3); Mean Platelet Volume 8.8 fL (9.4-12.4); Platelet Count 215 K/mcL (140-400); Red Blood Count 3.38 M/mcL (3.82-4.97); Red Cell Distribution Width 12.8 % (11.5-14.5); White Blood Count 4.1 K/mcL (4.3-11.1)
[2020-02-14 04:15] LABS: Chol/HDL Ratio 2.8 (0-4.9)
[2020-02-14 04:19] LABS: Calcium 8.5 mg/dL (8.6-10.3); Potassium 3.8 mEq/L (3.5-5.1)
[2020-02-14] MEDS: *HR* Heparin 5,000 UNIT/ML VIAL SQ SCH (05:51)
[2020-02-14] MEDS ORDERED: Regadenoson 0.4 MG/5 ML SYRINGE IVP ONE (07:06)
[2020-02-14 07:42] LABS: Estimated Average Glucose 123 mg/dl; Hemoglobin A1C 5.9 %
[2020-02-14] MEDS ORDERED: Aspirin 81 MG TAB.CHEW PO SCH (09:00)
[2020-02-14] MEDS: Lisinopril-HCTZ 20-12.5mg TABLET PO SCH (09:59)
[2020-02-14 11:51] VITALS: BP 128/79
== END 2020-02-14 13:25 | disposition home or self-care (01) ==
LOC: 3BNU 08:49 → EMEROOARM 08:49 → SUATTDRO 10:21 → 3BNU 11:25
PROVIDERS: ADMIT Internal Medicine; ATTEND Family Medicine

== ENCOUNTER 2021-01-20 19:41 | Observation (INO) ==
[2021-01-20] MEDS ORDERED: Isovue-370 500 ML BOTTLE IVP ONE (21:28)
[2021-01-20 21:59] LABS: Basophils % 0.5 %; Eosinophils # 0.3 K/mcL (0.0-0.6); Eosinophils % 4.7 %; Hematocrit 32.2 % (35.3-44.9); Hemoglobin 10.2 g/dL (11.5-15.4); Immature Granulocytes % 0.3 % (0-4); Lymphocytes # 0.7 K/mcL (0.6-4.6); Lymphocytes % 12.4 %; Mean Corpuscular HGB Conc 31.7 g/dL (31.6-35.5); Mean Corpuscular Hemoglobin 30.6 pg (28.0-33.3); Mean Corpuscular Volume 96.7 fL (83.0-100.0); Mean Platelet Volume 8.9 fL (9.4-12.4); Monocytes # 0.6 K/mcL (0.0-1.3); Monocytes % 9.9 %; Neutrophils # 4.3 K/mcL (1.6-8.9); Platelet Count 286 K/mcL (140-400); Red Blood Count 3.33 M/mcL (3.82-4.97); Red Cell Distribution Width 12.9 % (11.5-14.5); Segmented Neutrophils % 72.2 %
[2021-01-20 22:18] LABS: Calcium 8.4 mg/dL (8.6-10.3); Potassium 3.7 mEq/L (3.5-5.1)
[2021-01-21] MEDS ORDERED: Vancomycin 1,750 MG/517.5 ML IV.SOLN IVPB ONE (00:36)
[2021-01-21] MEDS ORDERED: 0.9 % Sodium Chloride 500 ML IVC STA (00:36)
[2021-01-21] MEDS ORDERED: cefTRIAXone 1,000 MG in Water for inj. (sterile) 10 ML IVP ONE (00:36)
[2021-01-21] MEDS ORDERED: *HR* Promethazine 25 MG/ML VIAL IM PRN (02:29)
[2021-01-21] MEDS ORDERED: Naloxone 0.4 MG/ML INJ IVP PRN (02:29)
[2021-01-21] MEDS ORDERED: Melatonin 3 MG TABLET PO PRN (02:29)
[2021-01-21] MEDS ORDERED: Ondansetron 4 MG/2 ML VIAL IVP PRN (02:29)
[2021-01-21] MEDS: *HR* HYDROcodone/Acet 5/325 mg TABLET PO PRN (05:36)
[2021-01-21] MEDS ORDERED: Piperacillin/Tazobactam 3.375 GM in 0.9 % Sodium Chloride Mini Bag 100 ML IVPB SCH (08:00)
[2021-01-21] MEDS: Lisinopril-HCTZ 20-12.5mg TABLET PO SCH (08:52)
[2021-01-21] MEDS ORDERED: Vancomycin 1,750 MG in 0.9 % Sodium Chloride 250 ML IVPB SCH (09:00)
[2021-01-21] MEDS ORDERED: *HR* OxyCODONE/APAP 10/325 TABLET PO PRN (09:55)
[2021-01-21] MEDS: cefTRIAXone 1,000 MG in Water for inj. (sterile) 10 ML IVP SCH (13:59)
[2021-01-22 02:17] LABS: Basophils % 0.7 %; Eosinophils # 0.3 K/mcL (0.0-0.6); Eosinophils % 5.8 %; Hemoglobin 9.4 g/dL (11.5-15.4); Immature Granulocytes % 0.3 % (0-4); Lymphocytes # 0.9 K/mcL (0.6-4.6); Lymphocytes % 14.8 %; Mean Corpuscular HGB Conc 31.3 g/dL (31.6-35.5); Mean Corpuscular Volume 95.8 fL (83.0-100.0); Mean Platelet Volume 8.8 fL (9.4-12.4); Monocytes # 0.6 K/mcL (0.0-1.3); Monocytes % 10.3 %; Platelet Count 269 K/mcL (140-400); Red Blood Count 3.13 M/mcL (3.82-4.97); Red Cell Distribution Width 13.2 % (11.5-14.5); Segmented Neutrophils % 68.1 %; White Blood Count 5.8 K/mcL (4.3-11.1)
[2021-01-22 02:29] LABS: Potassium 3.8 mEq/L (3.5-5.1)
[2021-01-22] MEDS: *HR* HYDROcodone/Acet 5/325 mg TABLET PO PRN ×3 (03:54→23:28)
[2021-01-22] MEDS: cefTRIAXone 1,000 MG in Water for inj. (sterile) 10 ML IVP SCH (07:45)
[2021-01-22] MEDS: Lisinopril-HCTZ 20-12.5mg TABLET PO SCH (07:45)
[2021-01-22] MEDS ORDERED: 0.9 % Sodium Chloride 1,000 ML IVC SCH (12:30)
[2021-01-23 03:16] LABS: Basophils % 0.7 %; Eosinophils # 0.3 K/mcL (0.0-0.6); Eosinophils % 4.7 %; Hematocrit 27.6 % (35.3-44.9); Hemoglobin 8.6 g/dL (11.5-15.4); Immature Granulocytes % 0.3 % (0-4); Lymphocytes # 0.9 K/mcL (0.6-4.6); Lymphocytes % 15.6 %; Mean Corpuscular HGB Conc 31.2 g/dL (31.6-35.5); Mean Corpuscular Hemoglobin 29.9 pg (28.0-33.3); Mean Corpuscular Volume 95.8 fL (83.0-100.0); Mean Platelet Volume 8.7 fL (9.4-12.4); Monocytes # 0.5 K/mcL (0.0-1.3); Monocytes % 8.2 %; Neutrophils # 4.2 K/mcL (1.6-8.9); Platelet Count 289 K/mcL (140-400); Red Blood Count 2.88 M/mcL (3.82-4.97); Red Cell Distribution Width 13.2 % (11.5-14.5); Segmented Neutrophils % 70.5 %
[2021-01-23] MEDS: Benzonatate 100 MG CAPSULE PO PRN (05:38)
[2021-01-23] MEDS: Lisinopril-HCTZ 20-12.5mg TABLET PO SCH (10:32)
[2021-01-23] MEDS: cefTRIAXone 1,000 MG in Water for inj. (sterile) 10 ML IVP SCH (10:32)
[2021-01-23] MEDS: *HR* HYDROcodone/Acet 5/325 mg TABLET PO PRN (18:40)
[2021-01-24] MEDS: Benzonatate 100 MG CAPSULE PO PRN (06:10)
[2021-01-24 06:43] LABS: Basophils # 0.1 K/mcL (0.0-0.2); Basophils % 0.8 %; Eosinophils # 0.4 K/mcL (0.0-0.6); Eosinophils % 5.9 %; Hematocrit 31.2 % (35.3-44.9); Hemoglobin 10.1 g/dL (11.5-15.4); Immature Granulocytes % 0.6 % (0-4); Lymphocytes # 1.3 K/mcL (0.6-4.6); Mean Corpuscular HGB Conc 32.4 g/dL (31.6-35.5); Mean Corpuscular Hemoglobin 30.7 pg (28.0-33.3); Mean Corpuscular Volume 94.8 fL (83.0-100.0); Mean Platelet Volume 8.6 fL (9.4-12.4); Monocytes # 0.6 K/mcL (0.0-1.3); Monocytes % 9.5 %; Neutrophils # 4.2 K/mcL (1.6-8.9); Platelet Count 352 K/mcL (140-400); Red Blood Count 3.29 M/mcL (3.82-4.97); Red Cell Distribution Width 13.2 % (11.5-14.5); Segmented Neutrophils % 63.2 %; White Blood Count 6.7 K/mcL (4.3-11.1)
[2021-01-24 07:05] LABS: Calcium 8.7 mg/dL (8.6-10.3); Potassium 4.1 mEq/L (3.5-5.1)
[2021-01-24] MEDS ORDERED: Fluticasone Propionate Nasal 50 MCG/SPRAY BOTTLE NS SCH (09:00)
[2021-01-24] MEDS: Lisinopril-HCTZ 20-12.5mg TABLET PO SCH (09:49)
[2021-01-24] MEDS: cefTRIAXone 1,000 MG in Water for inj. (sterile) 10 ML IVP SCH (09:50)
[2021-01-24 16:14] VITALS: BP 126/78
== END 2021-01-24 17:35 | disposition home or self-care (01) ==
LOC: EMEROOARM 19:41 → 3NENU 19:41 → SUATTDRO 01-21 02:29 → 3NENU 01-21 03:52
PROVIDERS: ADMIT Student in an Organized Health Care Education/Training Program; ATTEND Internal Medicine

== ENCOUNTER 2021-01-28 12:08 | Observation (INO) ==
[2021-01-28 14:18] LABS: Basophils % 0.3 %; Eosinophils # 0.4 K/mcL (0.0-0.6); Eosinophils % 5.2 %; Hematocrit 31.3 % (35.3-44.9); Hemoglobin 9.7 g/dL (11.5-15.4); Immature Granulocytes % 0.7 % (0-4); Lymphocytes % 13.1 %; Mean Corpuscular Volume 96.9 fL (83.0-100.0); Mean Platelet Volume 8.3 fL (9.4-12.4); Monocytes # 0.6 K/mcL (0.0-1.3); Monocytes % 7.7 %; Neutrophils # 5.3 K/mcL (1.6-8.9); Platelet Count 347 K/mcL (140-400); Red Blood Count 3.23 M/mcL (3.82-4.97); Red Cell Distribution Width 13.1 % (11.5-14.5); White Blood Count 7.3 K/mcL (4.3-11.1)
[2021-01-28 14:29] LABS: INR 1.1; Prothrombin Time 12.7 Seconds (9.4-12.1)
[2021-01-28 14:32] LABS: Activated Partial Thrombo Time 28.3 Seconds (26.0-36.0)
[2021-01-28 14:36] LABS: Albumin 3.8 g/dL (3.5-5.7); Albumin/Globulin Ratio 1.3 (1.1-2.2); Bilirubin,Total 0.5 mg/dL (0.3-1.0); Calcium 8.4 mg/dL (8.6-10.3); Total Protein 6.8 g/dL (6.4-8.9)
[2021-01-28] MEDS ORDERED: Acetaminophen 325 MG TABLET PO ONE (16:18)
[2021-01-28] MEDS ORDERED: Acetaminophen 325 MG TABLET PO PRN (17:03)
[2021-01-28] MEDS ORDERED: Naloxone 0.4 MG/ML INJ IVP PRN (17:03)
[2021-01-28] MEDS ORDERED: *HR* HYDROcodone/Acet 5/325 mg TABLET PO PRN (17:03)
[2021-01-28] MEDS ORDERED: Ondansetron 4 MG/2 ML VIAL IVP PRN (17:03)
[2021-01-28] MEDS ORDERED: Morphine Sulfate 2 MG/ML SYRINGE IVP PRN (17:49)
[2021-01-28] MEDS: Piperacillin/Tazobactam 3.375 GM in 0.9 % Sodium Chloride Mini Bag 100 ML IVPB SCH (19:15)
[2021-01-28] MEDS: *HR* OxyCODONE Immed Rel 5 MG TABLET PO PRN (19:22)
[2021-01-29] MEDS: *HR* OxyCODONE Immed Rel 5 MG TABLET PO PRN ×3 (02:47→16:00)
[2021-01-29] MEDS: Piperacillin/Tazobactam 3.375 GM in 0.9 % Sodium Chloride Mini Bag 100 ML IVPB SCH (02:48)
[2021-01-29 07:32] LABS: Basophils % 0.5 %; Eosinophils # 0.4 K/mcL (0.0-0.6); Eosinophils % 5.9 %; Hematocrit 28.2 % (35.3-44.9); Immature Granulocytes % 0.3 % (0-4); Lymphocytes % 14.9 %; Mean Corpuscular HGB Conc 31.9 g/dL (31.6-35.5); Mean Corpuscular Hemoglobin 30.5 pg (28.0-33.3); Mean Corpuscular Volume 95.6 fL (83.0-100.0); Mean Platelet Volume 8.5 fL (9.4-12.4); Monocytes # 0.5 K/mcL (0.0-1.3); Monocytes % 7.5 %; Neutrophils # 4.7 K/mcL (1.6-8.9); Platelet Count 322 K/mcL (140-400); Red Blood Count 2.95 M/mcL (3.82-4.97); Red Cell Distribution Width 13.2 % (11.5-14.5); Segmented Neutrophils % 70.9 %; White Blood Count 6.7 K/mcL (4.3-11.1)
[2021-01-29 07:55] LABS: Calcium 8.2 mg/dL (8.6-10.3); Potassium 4.1 mEq/L (3.5-5.1)
[2021-01-29] MEDS ORDERED: 0.9 % Sodium Chloride 1,000 ML IVC SCH (08:45)
[2021-01-29] MEDS ORDERED: *HR* Propofol 200 MG/20 ML VIAL IVP ONE (10:59)
[2021-01-29] MEDS ORDERED: *HR* FentaNYL (PF) 100 MCG/2 ML VIAL ONE (10:59)
[2021-01-29] MEDS ORDERED: EPHEDrine 50 MG/ML VIAL ONE (11:50)
[2021-01-29] MEDS ORDERED: Ondansetron 4 MG/2 ML VIAL ONE (11:52)
[2021-01-29] MEDS ORDERED: *HR* OxyCODONE/APAP 5/325 TABLET PO PRN (12:48)
[2021-01-29] MEDS: *HR* HYDROmorphone PF 0.5 MG/0.5 ML SYRINGE IVP PRN ×2 (12:54→13:03)
[2021-01-29] MEDS ORDERED: Ondansetron 4 MG/2 ML VIAL IVP PRN (13:40)
[2021-01-29] MEDS ORDERED: Acetaminophen 325 MG TABLET PO PRN (13:40)
[2021-01-29] MEDS ORDERED: *HR* HYDROcodone/Acet 5/325 mg TABLET PO PRN (13:40)
[2021-01-29] MEDS ORDERED: Morphine Sulfate 2 MG/ML SYRINGE IVP PRN (13:40)
[2021-01-29] MEDS ORDERED: Naloxone 0.4 MG/ML INJ IVP PRN (13:40)
[2021-01-29] MEDS ORDERED: Piperacillin/Tazobactam 3.375 GM in 0.9 % Sodium Chloride Mini Bag 100 ML IVPB SCH (19:00)
[2021-01-29] MEDS: Sucralfate 1 GM TABLET PO SCH (20:34)
[2021-01-30] MEDS: *HR* OxyCODONE Immed Rel 5 MG TABLET PO PRN ×4 (00:18→20:55)
[2021-01-30 03:39] LABS: Basophils % 0.1 %; Eosinophils % 0.1 %; Hematocrit 27.4 % (35.3-44.9); Hemoglobin 8.8 g/dL (11.5-15.4); Immature Granulocytes % 0.4 % (0-4); Lymphocytes # 0.7 K/mcL (0.6-4.6); Lymphocytes % 8.8 %; Mean Corpuscular HGB Conc 32.1 g/dL (31.6-35.5); Mean Corpuscular Hemoglobin 30.4 pg (28.0-33.3); Mean Corpuscular Volume 94.8 fL (83.0-100.0); Mean Platelet Volume 8.4 fL (9.4-12.4); Monocytes # 0.4 K/mcL (0.0-1.3); Monocytes % 5.2 %; Neutrophils # 6.3 K/mcL (1.6-8.9); Platelet Count 282 K/mcL (140-400); Red Blood Count 2.89 M/mcL (3.82-4.97); Red Cell Distribution Width 12.7 % (11.5-14.5); Segmented Neutrophils % 85.4 %; White Blood Count 7.4 K/mcL (4.3-11.1)
[2021-01-30 03:55] LABS: Calcium 8.3 mg/dL (8.6-10.3); Potassium 4.9 mEq/L (3.5-5.1)
[2021-01-30] MEDS ORDERED: Fluticasone Propionate Nasal 50 MCG/SPRAY BOTTLE NS SCH (09:00)
[2021-01-30] MEDS: Sucralfate 1 GM TABLET PO SCH ×2 (10:29→20:55)
[2021-01-30] MEDS: Lisinopril-HCTZ 20-12.5mg TABLET PO SCH (10:29)
[2021-01-30] MEDS: Piperacillin/Tazobactam 3.375 GM in 0.9 % Sodium Chloride Mini Bag 100 ML IVPB SCH (16:30)
[2021-01-31] MEDS: Piperacillin/Tazobactam 3.375 GM in 0.9 % Sodium Chloride Mini Bag 100 ML IVPB SCH ×4 (00:13→23:13)
[2021-01-31 02:55] LABS: Basophils % 0.4 %; Eosinophils # 0.3 K/mcL (0.0-0.6); Eosinophils % 4.3 %; Hematocrit 27.7 % (35.3-44.9); Hemoglobin 8.6 g/dL (11.5-15.4); Immature Granulocytes % 0.5 % (0-4); Lymphocytes # 1.3 K/mcL (0.6-4.6); Mean Corpuscular Hemoglobin 30.4 pg (28.0-33.3); Mean Corpuscular Volume 97.9 fL (83.0-100.0); Mean Platelet Volume 8.6 fL (9.4-12.4); Monocytes # 0.6 K/mcL (0.0-1.3); Monocytes % 8.1 %; Neutrophils # 5.1 K/mcL (1.6-8.9); Platelet Count 307 K/mcL (140-400); Red Blood Count 2.83 M/mcL (3.82-4.97); Red Cell Distribution Width 13.2 % (11.5-14.5); Segmented Neutrophils % 68.7 %; White Blood Count 7.4 K/mcL (4.3-11.1)
[2021-01-31 03:11] LABS: Calcium 8.3 mg/dL (8.6-10.3); Potassium 4.7 mEq/L (3.5-5.1)
[2021-01-31] MEDS: *HR* OxyCODONE Immed Rel 5 MG TABLET PO PRN ×3 (03:35→19:55)
[2021-01-31] MEDS: Lisinopril-HCTZ 20-12.5mg TABLET PO SCH (08:44)
[2021-01-31] MEDS: Sucralfate 1 GM TABLET PO SCH ×2 (08:44→19:53)
[2021-02-01] MEDS: Piperacillin/Tazobactam 3.375 GM in 0.9 % Sodium Chloride Mini Bag 100 ML IVPB SCH ×2 (09:18→10:34)
[2021-02-01] MEDS: Sucralfate 1 GM TABLET PO SCH (09:19)
[2021-02-01] MEDS: Lisinopril-HCTZ 20-12.5mg TABLET PO SCH (09:19)
[2021-02-01 11:13] VITALS: BP 114/77
== END 2021-02-01 15:21 ==
LOC: 3NENU 12:08 → EMEROOARM 12:08 → SUATTDRO 16:35 → 3NENU 18:15
PROVIDERS: ADMIT Internal Medicine; ATTEND Student in an Organized Health Care Education/Training Program